=== PATIENT | male | born 1940 | race Caucasian/White ===

== ENCOUNTER 2021-03-20 13:02 | Day surgery (SDC) | payer MEDICARE, BC ==
[~2021-03-20 13:02] MED LIST: ACET-1600 PO; ACID1TAB7 PO; AMOX1TAB12 PO; ASPI81TA45 PO; ATOR20TA37 PO; DIPH1TAB PO; DOXY25TA45 PO; MAGN400T50 PO; RAMI2.5C49 PO; TAMS-11 PO
[2021-03-20] MEDS ORDERED: CHLORHEXIDINE 15 ML UDC ONE (13:59)
[2021-03-20] MEDS ORDERED: CHLORHEXIDINE 15 ML UDC PO ONE (14:00)
== END 2021-03-20 16:05 | disposition home or self-care (01) ==
LOC: OR 13:02
PROVIDERS: ATTEND Otolaryngology
DX: D14.0 Benign neoplasm of middle ear, nasal cavity and accessory sinuses (principal); J32.4 Chronic pansinusitis; Z20.822 Contact with and (suspected) exposure to COVID-19; Z79.899 Other long term (current) drug therapy
CPT/HCPCS: 87635